=== PATIENT | male | born 1975 ===

== ENCOUNTER 2019-08-08 22:19 | Observation (INO) ==
[2019-08-08] MEDS ORDERED: *HR* HYDROmorphone (PF) 1 MG/ML SYRINGE IVP ONE (22:34)
[2019-08-08] MEDS ORDERED: Ketorolac 15 MG/ML VIAL IVP ONE (22:34)
[2019-08-08] MEDS ORDERED: Ondansetron 4 MG/2 ML VIAL IVP ONE (22:34)
[2019-08-08] MEDS ORDERED: 0.9 % Sodium Chloride 1,000 ML IVC ONE ×3 (22:34→23:19)
[2019-08-08 22:51] LABS: Basophils # 0.1 K/mcL (0.0-0.2); Basophils % 0.3 %; Eosinophils % 0.1 %; Hematocrit 46.5 % (37.5-50.1); Hemoglobin 16.2 g/dL (12.9-16.9); Immature Granulocytes % 0.3 % (0-4); Lymphocytes % 5.8 %; Mean Corpuscular HGB Conc 34.8 g/dL (31.6-35.5); Mean Corpuscular Hemoglobin 28.5 pg (28.0-33.3); Mean Corpuscular Volume 81.7 fL (83.0-100.0); Mean Platelet Volume 10.6 fL (9.4-12.4); Monocytes # 1.2 K/mcL (0.0-1.3); Monocytes % 6.8 %; Neutrophils # 15.6 K/mcL (1.6-8.9); Platelet Count 177 K/mcL (140-400); Red Blood Count 5.69 M/mcL (4.19-5.50); Red Cell Distribution Width 13.6 % (11.5-14.5); Segmented Neutrophils % 86.7 %
[2019-08-08 23:10] LABS: Alanine Aminotransferase 27 Units/L (7-52); Albumin 4.8 g/dL (3.5-5.7); Albumin/Globulin Ratio 1.8 (1.1-2.2); Alkaline Phosphatase 62 Units/L (34-104); Aspartate Amino Transferase 15 Units/L (13-39); BUN/Creatinine Ratio 17 (6-26); Bilirubin,Total 0.9 mg/dL (0.3-1.0); Blood Urea Nitrogen 11 mg/dL (6-20); Calcium 9.4 mg/dL (8.6-10.3); Carbon Dioxide 26 mEq/L (23-29); Chloride 100 mEq/L (98-107); Globulin 2.6 g/dL (2.4-3.5); Glucose 132 mg/dL (70-105); Lipase < 3 Units/L (11-82); Osmolality,Calculated 279 (280-300); Potassium 3.6 mEq/L (3.5-5.1); Sodium 134 mEq/L (136-145); Total Protein 7.4 g/dL (6.4-8.9); eGFR For African Americans > 60 (> 60); eGFR For Non-African Americans > 60 (> 60)
[2019-08-08] MEDS ORDERED: Piperacillin/Tazobactam 3.375 GM in Water for inj. (sterile) 20 ML IVP ONE (23:14)
[2019-08-08 23:42] LABS: Bilirubin,Urine Negative (Negative); Blood,Urine Negative (Negative); Clarity,Urine Clear (Clear); Color,Urine Yellow (Yellow); Glucose,Urine (UA) Normal (Normal); Ketones,Urine Negative (Negative); Leukocyte Esterase,Urine Negative (Negative); Nitrite,Urine Negative (Negative); Protein,Urine Negative (Neg-Trace); Specific Gravity,Urine 1.021 (1.010-1.025); Urobilinogen,Urine Normal (Normal)
[2019-08-09] MEDS ORDERED: 0.9 % Sodium Chloride 1,000 ML IVC SCH (02:15)
[2019-08-09] MEDS ORDERED: Levalbuterol Neb 1.25 MG/3 ML IH STA (04:09)
[2019-08-09] MEDS ORDERED: Acetaminophen IV 1,000 MG/100 ML INFUS..BTL IVPB ONE ×2 (04:17→05:02)
[2019-08-09] MEDS ORDERED: Acetaminophen IV 1,000 MG/100 ML INFUS..BTL ONE (04:18)
[2019-08-09] MEDS ORDERED: Metoclopramide 10 MG/2 ML VIAL IVP ONE (05:02)
[2019-08-09] MEDS ORDERED: *HR* HYDROmorphone (PF) 1 MG/ML SYRINGE IVP PRN (05:02)
[2019-08-09] MEDS ORDERED: Ondansetron 4 MG/2 ML VIAL IVP ONE (05:02)
[2019-08-09] MEDS ORDERED: *HR* Propofol 200 MG/20 ML VIAL IVP ONE ×2 (05:12→06:55)
[2019-08-09] MEDS ORDERED: *HR* FentaNYL (PF) 100 MCG/2 ML VIAL ONE ×2 (05:12→06:12)
[2019-08-09] MEDS ORDERED: *HR* Rocuronium Bromide 50 MG/5 ML VIAL ONE (05:14)
[2019-08-09] MEDS ORDERED: *HR* Succinylcholine 200 MG/10 ML VIAL IVP ONE (05:14)
[2019-08-09] MEDS ORDERED: Lidocaine -MPF 2% 2 ML VIAL ONE (05:14)
[2019-08-09] MEDS ORDERED: Dexamethasone 4 MG/ML VIAL ONE (05:14)
[2019-08-09] MEDS ORDERED: Ketorolac 30 MG/ML VIAL ONE (05:53)
[2019-08-09] MEDS: 0.9 % Sodium Chloride 1,000 ML IVC SCH ×2 (08:59→21:10)
[2019-08-09] MEDS: Piperacillin/Tazobactam 3.375 GM in 0.9 % Sodium Chloride Mini Bag 100 ML IVPB SCH ×2 (09:00→17:33)
[2019-08-09] MEDS: Nicotine 21 MG PATCH.TD24 TD SCH (11:57)
[2019-08-09] MEDS: Acetaminophen IV 1,000 MG/100 ML INFUS..BTL IVPB SCH ×2 (11:58→17:32)
[2019-08-09] MEDS: Pantoprazole 40 MG VIAL IVP SCH (17:33)
[2019-08-09] MEDS: *HR* Buprenorphine HCl 8 MG TAB.SUBL SL SCH (22:35)
[2019-08-10] MEDS: Acetaminophen IV 1,000 MG/100 ML INFUS..BTL IVPB SCH ×3 (00:07→11:20)
[2019-08-10] MEDS: Piperacillin/Tazobactam 3.375 GM in 0.9 % Sodium Chloride Mini Bag 100 ML IVPB SCH ×2 (00:29→07:27)
[2019-08-10] MEDS: 0.9 % Sodium Chloride 1,000 ML IVC SCH ×2 (03:31→05:50)
[2019-08-10] MEDS: Pantoprazole 40 MG VIAL IVP SCH (05:43)
[2019-08-10 06:40] VITALS: BP 102/69
[2019-08-10] MEDS ORDERED: *HR* Heparin 5,000 UNIT/ML VIAL SQ SCH (06:58)
[2019-08-10] MEDS: Nicotine 21 MG PATCH.TD24 TD SCH (07:26)
[2019-08-10] MEDS: *HR* Buprenorphine HCl 8 MG TAB.SUBL SL SCH (07:27)
== END 2019-08-10 12:10 | disposition home or self-care (01) ==
LOC: 3ANU 22:19 → EMEROOARM 22:19 → 3ANU 08-09 00:44
PROVIDERS: ADMIT Surgery; ATTEND Surgery